=== PATIENT | female | born 1995 | race Caucasian/White ===

== ENCOUNTER 2023-02-03 06:41 | Emergency (ER) | payer OTHER, SELFPAY ==
--- NOTE | ~2023-02-03 | CT_ITS ---
Non-contrast CT scan of the Abdomen and Pelvis Clinical indication: Kidney stone Technique: 2.5 mm axial scans were obtained through the abdomen and pelvis without intravenous or or al contrast. Dose reduction technique was used on this scan by utilizing automated exposure control a nd iterative reconstruction technique. The dose-length product (DLP) was 307.53 mGy-cm. Findings: Images through the lung bases reveal no abnormalities. There are 1-2 mm nonobstructing left renal stones present. No ureteral stone or hydronephrosis seen o n either side. No right renal stone evident. The liver, spleen, pancreas, gallbladder, and adrenals appear normal. There is no aortic aneurysm. There is no evidence of bowel obstruction. Images through the pelvis were performed. There is no evidence of ascites or lymphadenopathy. [address] one present within the urinary bladder. IUD in place. No adnexal mass evident. Impression: 3 mm urinary bladder stone, possibly recently passed. Correlate with symptomatology. 1-2 mm nonobstructing left renal stones. No hydronephrosis. No ureteral stones seen currently. IUD in place. Reviewed, dictated and finalized at [facility]. Impression: 3 mm urinary bladder stone, possibly recently passed. Correlate with symptomato logy. 1-2 mm nonobstructing left renal stones. No hydronephrosis. No ureteral stones seen currently. IUD in place.
[2023-02-03 06:48] VITALS: BP 130/88; PULSE 72; RESP 19; TEMP 36.7; O2SAT 100
[2023-02-03 07:09] LABS: Basophils Absolute Auto 0.1 K/mm3 (0.0-0.1); Basophils Percent Auto 0.5 % (0.2-1.2); Eosinophils Absolute Auto 0.2 K/mm3 (0-0.3); Eosinophils Percent Auto 1.4 % (0-4.4); Hematocrit 42.3 % (37.0-47.0); Hemoglobin 14.2 g/dL (12.0-15.0); Immature Granulocyte Absolute 0.08 K/mm3 (0.00-0.031); Immature Granulocyte Percent A 0.6 % (0-0.5); Lymphocytes Absolute Auto 4.05 K/mm3 (0.9-3.2); Lymphocytes Percent Auto 28.6 % (18.3-44.2); Mean Corpuscular HGB Conc 33.6 g/dl (32-36); Mean Corpuscular Hemoglobin 31.4 pg (26-34); Mean Corpuscular Volume 93.6 fl (80-100); Mean Platelet Volume 10.2 fl (7.4-10.4); Monocytes Absolute Auto 0.6 K/mm3 (0.1-0.6); Monocytes Percent Auto 4.2 % (2.6-8.5); Neutrophils Absolute Auto 9.2 K/mm3 (1.3-6.7); Neutrophils Percent Auto 64.7 % (45.5-73.1); Platelet Count Result 276 k/mm3 (150-375); Red Blood Count 4.52 M/mm3 (4.2-5.4); Red Cell Distribution Width 12.5 % (11.5-14.5); White Blood Count 14.2 K/mm3 (4.5-10.0)
[2023-02-03 07:12] LABS: Appearance Urine Turbid (Clear); Bacteria Urine None Seen /hpf; Bilirubin Urine Negative (Negative); Blood Urine 1+ (Negative); Color Urine Yellow (Yellow); Glucose Urine UA Negative (Negative); Ketones Urine 1+ mg/dL (Negative); Leukocyte Esterase Ur Trace LEU/UL (Negative); Nitrate Urine Negative (Negative); Non Pathogenic Casts 0-2; Protein Urine Trace mg/dL (Negative); Specific Grav Ur 1.022 (1.001-1.035); Squamous Epithelial Cell Urine Few /hpf (Few)
[2023-02-03 07:20] LABS: Alanine Aminotransferase 22 U/L (6-35); Albumin Level 4.6 g/dL (3.5-5.1); Alkaline Phosphatase 83 U/L (38-126); Anion Gap 14 mmol/L (8-16); Aspartate Amino Transferase 25 U/L (14-36); Bilirubin,Total 0.4 mg/dL (0.2-1.3); Blood Urea Nitrogen 11 mg/dL (7-17); Calcium 9.2 mg/dL (8.4-10.2); Carbon Dioxide 20 mmol/L (22-30); Chloride 104 mmol/L (98-107); Estimated CRCL calculation 81 ml/min; Estimated Glomerular Filt Rate > 60; Glucose 166 mg/dL (65-110); Lipase 153 U/L (23-300); Potassium 3.2 mmol/L (3.4-5.0); Sodium 138 mmol/L (137-145)
[2023-02-03] MEDS: ONDANSETRON INJ 4 MG/2 ML VIAL 8 MG IV PUSH (07:23)
[2023-02-03] MEDS: HYDROmorphone HCL INJ (*CRX) 1 MG/ML SYR 0.5 MG IV PUSH (07:24)
--- NOTE | 2023-02-03 07:26 | ED.ABDPAIN ---
HPI - Abdominal Pain General Chief Complaint: Abdominal Pain Stated Complaint: flank pain Time Seen by Provider: 02/03/23 07:25 Source: patient and family Mode of arrival: ambulatory Limitations: no limitations History of Present Illness HPI narrative: Woke up at 4:30 AM with severe pain at left flank area associated with nausea and vomiting. Positive family history of her mother and her father of kidney stone. She denies any fever or chills. No history of abdominal surgery or kidney stone Related Data Allergies Allergy/AdvReac Type Severity Reaction Status Date / Time No Known Allergies Allergy Verified 02/03/23 07:14 Review of Systems Review of Systems: All systems reviewed & are unremarkable except as noted in HPI and below Exam Narrative: General appearance: Well-developed, well-nourished patient looks okay not in pain or distress after having Dilaudid Skin: Normal color Head: Normocephalic, nontraumatic Eyes: Clear conjunctiva ENT: Oropharynx normal, ears normal, nose normal Neck: Supple, nontender Chest and respiratory: Airway patent, no respiratory distress, no accessory muscle use Heart: Regular rate/rhythm Abdomen: Soft, nontender, no organomegaly, quiet bowel sounds Vascular: Normal peripheral pulses, normal capillary refill. Musculoskeletal: Normal range of motion, nontender back Neurologic: Alert and oriented ?3, [employer] is normal as tested, no gross motor deficit Course Reevaluation(s) Reevaluation #1: Currently patient is asymptomatic Date: 02/03/23 Time: 08:04 Vital Signs Vital signs: Vital Signs Temperature 36.7 C 02/03/23 06:48 Pulse Rate 72 02/03/23 06:48 Respiratory Rate 19 02/03/23 06:48 Blood Pressure 130/88 02/03/23 06:48 Pulse Oximetry 100 02/03/23 06:48 Oxygen Delivery Room Air 02/03/23 06:48 Temperature 36.7 C 02/03/23 06:48 Pulse Rate 72 02/03/23 06:48 Respiratory Rate 19 02/03/23 06:48 Blood Pressure 130/88 02/03/23 06:48 Pulse Oximetry 100 02/03/23 06:48 Oxygen Delivery Room Air 02/03/23 06:48 MDM - Abdominal Pain MDM Narrative Medical decision making narrative: Patient presents with left flank pain woke her up at 4:30 AM prior to arrival to the emergency room. Associated with nausea and vomiting, physical examination was benign because the patient received Dilaudid prior to my physical examination, differential diagnosis kidney stone, urinary tract infection Blood work-up showed WBC of 14.2 could be secondary infection or stress and pain, chemistry showing potassium of 3.2, urine analysis showed 1+ blood, trace leukoesterase. CT scan abdomen and pelvis without contrast showed 3 mm urinary stone in the urinary bladder possibly recently passed. Currently patient feeling much better, asymptomatic and pain-free. Passed a stone is high likely. Patient will be discharged to follow-up with urologist as needed. Differential Diagnosis Differential diagnosis: Likely abdominal pain, calculus of kidney, constipation and other (Urinary tract infection) Medical Records Attestation: I reviewed the patient's medical records. Lab Data Attestation: I reviewed the patient's lab results. 02/03/23 06:59 02/03/23 06:59 Labs: Lab Results 02/03/23 Range/Units 06:59 WBC 14.2 H (4.5-10.0) K/mm3 RBC 4.52 (4.2-5.4) M/mm3 Hgb 14.2 (12.0-15.0) g/dL Hct 42.3 (37.0-47.0) % MCV 93.6 (80-100) fl MCH 31.4 (26-34) pg MCHC 33.6 (32-36) g/dl RDW 12.5 (11.5-14.5) % Plt Count 276 (150-375) k/mm3 MPV 10.2 (7.4-10.4) fl Immature Gran % (Auto) 0.6 H (0-0.5) % Neut % (Auto) 64.7 (45.5-73.1) % Lymph % (Auto) 28.6 (
[2023-02-03 07:27] LABS: Add Urine Microscopic? YES
[2023-02-03] MEDS: SODIUM CHLORIDE 0.9% IV 1,000 ML 999 ML IV CONT (07:55)
[2023-02-03 08:20] VITALS: BP 117/81; PULSE 72; RESP 16; O2SAT 100
== END 2023-02-03 08:20 | disposition home or self-care (01) ==
PROVIDERS: Emergency Provider Emergency Medicine
DX: N20.0 Calculus of kidney (principal); Z97.5 Presence of (intrauterine) contraceptive device
CPT/HCPCS: 36415; 74176; 80053; 81001; 81025; 83690; 85025; 87077; 87086; 87186; 96361; 96374; 96375; 99284; J1170; J2405; J7030